=== PATIENT | male | born 1960 | race African-American/Black ===

== ENCOUNTER 2020-09-03 13:05 | Inpatient (IN) | payer MEDICAID ==
[~2020-09-03] VITALS: Ht 172.7 cm; Wt 79.0 kg
[2020-09-03] MEDS ORDERED: PANTOPRAZOLE SODIUM 40 MG/VIAL IV STA (13:29)
[2020-09-03] MEDS ORDERED: FAMOTIDINE 20MG/2ML VIAL IV STA (13:29)
[2020-09-03] MEDS ORDERED: MAGNESIUM/ALUMINUM HYDROXIDE/SIMETHICONE 30ML UDC PO STA (13:29)
[2020-09-03] MEDS ORDERED: SODIUM CHLORIDE 0.9% 1,000 ML IV ONE (13:30)
[2020-09-03] MEDS ORDERED: VISCOUS LIDOCAINE 2% 15 ML UDC PO ONE (13:30)
[2020-09-03 14:26] LABS: BASOPHILS % 0.1 % (0.0-2.0); EOSINOPHILS % 2.7 % (0.0-5.0); HEMATOCRIT. 46.2 % (42.0-52.0); HEMOGLOBIN. 15.8 g/dL (14.0-18.0); MEAN CORPUSCULAR HEMOGLOBIN 31.3 pg (28.0-32.0); MEAN CORPUSCULAR VOLUME 91.2 fL (80.0-94.0); MEAN PLATELET VOLUME 7.1 fl (7.4-10.4); MONOCYTES % 4.2 % (2.0-8.0); PLATELET 257 x1000/uL (130-400); RED BLOOD CELL COUNT 5.06 mill/uL (4.7-6.1); RED CELL DISTRIBUTION WIDTH 14.4 % (11.6-14.6)
[2020-09-03 14:31] LABS: CHLORIDE 110 mEq/L (98-107)
[2020-09-03 14:37] LABS: ETHANOL BLOOD 125 mg/dL
[2020-09-03 15:20] LABS: CLARITY URINE CLEAR (CLEAR); COLOR URINE YELLOW (YELLOW); KETONES URINE NEGATIVE (NEGATIVE); LEUKOCYTE ESTERASE URINE NEGATIVE (NEGATIVE); NITRITE URINE NEGATIVE (NEGATIVE); OCCULT BLOOD URINE NEGATIVE (NEGATIVE); PH URINE 5.5 (4.5-8.0); PROTEIN URINE NEGATIVE (NEGATIVE); SPECIFIC GRAVITY URINE 1.013 (1.005-1.030); UROBILINOGEN URINE 0.2 E.U./dL (0.2-1.0)
[2020-09-03] MEDS ORDERED: IOHEXOL-300 100 ML BOTTLE ONE (19:32)
[2020-09-04] VITALS: BP 115/67
[2020-09-04 04:00] VITALS: BP 133/76
[2020-09-04] MEDS ORDERED: ONDANSETRON HCL 4MG/2ML INJ IV PRN (07:00)
[2020-09-04 08:00] VITALS: BP 120/69
[2020-09-04] MEDS: DEXT 5%/0.45% NACL KCL 10MEQ/L 1,000 ML IV SCH ×3 (09:24→23:43)
[2020-09-04] MEDS: PANTOPRAZOLE SODIUM 40 MG/VIAL IV SCH ×2 (09:25→21:56)
[2020-09-04 10:04] LABS: BASOPHILS % 0.2 % (0.0-2.0); EOSINOPHILS % 2.8 % (0.0-5.0); HEMATOCRIT. 40.3 % (42.0-52.0); LYMPHOCYTES % 29.9 % (20.0-50.0); MEAN CORPUSCULAR HEMOGLOBIN 31.6 pg (28.0-32.0); MEAN CORPUSCULAR VOLUME 90.8 fL (80.0-94.0); MEAN PLATELET VOLUME 7.3 fl (7.4-10.4); MONOCYTES % 6.4 % (2.0-8.0); NEUTROPHILS % 60.7 % (40.0-76.0); PLATELET 229 x1000/uL (130-400); RED BLOOD CELL COUNT 4.43 mill/uL (4.7-6.1); RED CELL DISTRIBUTION WIDTH 14.7 % (11.6-14.6)
[2020-09-04 10:09] LABS: CHLORIDE 109 mEq/L (98-107)
[2020-09-04 12:00] VITALS: BP 133/82
[2020-09-04] MEDS: METOCLOPRAMIDE HCL 10MG/2ML VIAL IV SCH ×3 (13:33→23:43)
[2020-09-04] MEDS ORDERED: FOLIC ACID 1 MG, THIAMINE HCL 100 MG, MVI, ADULT NO.1 10 ML in DEXTROSE 5% WATER 1,000 ML IV SCH (14:00)
[2020-09-04] MEDS: CHLORDIAZEPOXIDE 25MG CAPSULE PO SCH ×2 (14:00→21:56)
[2020-09-04 16:00] VITALS: BP 109/65
[2020-09-04 20:00] VITALS: BP 115/67
[2020-09-05] VITALS: BP 101/55
[2020-09-05 00:07] LABS: *AMPHETAMINES SCREEN URINE NEGATIVE (NEGATIVE); *BARBITURATES SCREEN URINE NEGATIVE (NEGATIVE); *BENZODIAZEPINES SCREEN URINE NEGATIVE (NEGATIVE); *COCAINE SCREEN URINE NEGATIVE (NEGATIVE)
[2020-09-05 00:08] LABS: CANNABINOID URINE SCREEN NEGATIVE (NEGATIVE); METHADONE URINE SCREEN NEGATIVE (NEGATIVE); OPIATES URINE SCREEN NEGATIVE (NEGATIVE); PHENCYCLIDINE URINE SCREEN NEGATIVE (NEGATIVE)
[2020-09-05 04:00] VITALS: BP 106/56
[2020-09-05] MEDS: METOCLOPRAMIDE HCL 10MG/2ML VIAL IV SCH ×2 (06:02→11:12)
[2020-09-05] MEDS: CHLORDIAZEPOXIDE 25MG CAPSULE PO SCH (06:02)
[2020-09-05 06:14] LABS: CHLORIDE 105 mEq/L (98-107)
[2020-09-05 06:20] LABS: PHOSPHORUS 2.5 mg/dL (2.5-4.9)
[2020-09-05 06:38] LABS: BASOPHILS % 0.1 % (0.0-2.0); EOSINOPHILS % 3.2 % (0.0-5.0); HEMOGLOBIN. 12.7 g/dL (14.0-18.0); LYMPHOCYTES % 32.7 % (20.0-50.0); MEAN CORPUSCULAR HEMOGLOBIN 31.4 pg (28.0-32.0); MEAN CORPUSCULAR VOLUME 91.4 fL (80.0-94.0); MEAN PLATELET VOLUME 7.5 fl (7.4-10.4); MONOCYTES % 6.5 % (2.0-8.0); NEUTROPHILS % 57.5 % (40.0-76.0); PLATELET 195 x1000/uL (130-400); RED BLOOD CELL COUNT 4.04 mill/uL (4.7-6.1); RED CELL DISTRIBUTION WIDTH 14.2 % (11.6-14.6)
[2020-09-05 07:35] LABS: HEPATITIS A AB IGM NEGATIVE (NEGATIVE)
[2020-09-05 08:00] VITALS: BP 100/65
[2020-09-05] MEDS ORDERED: POTASSIUM CHLORIDE 20MEQ TABLET SR PO NR (09:45)
[2020-09-05] MEDS: PANTOPRAZOLE SODIUM 40 MG/VIAL IV SCH (11:12)
[2020-09-05] MEDS: DEXT 5%/0.45% NACL KCL 10MEQ/L 1,000 ML IV SCH (11:12)
[2020-09-05 12:00] VITALS: BP 114/64
[2020-09-05 12:47] LABS: HEPATITIS B SURFACE ANTIGEN NEGATIVE
[2020-09-05] MEDS ORDERED: OMEP20TA2 MT (12:58)
[2020-09-05] MEDS ORDERED: THIA100T88 MT (12:58)
[2020-09-05 14:48] VITALS: BP 114/64
== END 2020-09-05 15:29 | disposition home or self-care (01) | DRG 242 ==
LOC: ER 13:19 → 6EST 17:31 → ENRESERV 22:46
PROVIDERS: ADMIT Internal Medicine; ATTEND Internal Medicine
DX: K22.6 Gastro-esophageal laceration-hemorrhage syndrome (principal); E87.8 Other disorders of electrolyte and fluid balance, not elsewhere classified; K29.21 Alcoholic gastritis with bleeding; I11.9 Hypertensive heart disease without heart failure; K70.30 Alcoholic cirrhosis of liver without ascites; I25.10 Atherosclerotic heart disease of native coronary artery without angina pectoris; F10.129 Alcohol abuse with intoxication, unspecified; F10.139 Alcohol abuse with withdrawal, unspecified; K57.90 Diverticulosis of intestine, part unspecified, without perforation or abscess without bleeding; Y90.6 Blood alcohol level of 120-199 mg/100 ml; Z87.11 Personal history of peptic ulcer disease; Z71.41 Alcohol abuse counseling and surveillance of alcoholic
CPT/HCPCS: 36415; 74177; 76700; 80048; 80053; 80305; 80320; 81003; 82105; 83735; 84100; 84484; 85025; 86705; 86709; 86803; 86850; 86900; 87340; 93005; 99285; C9113; J2765; J3411; J3490; J7030; J7070; Q9967; G0480

== ENCOUNTER 2022-03-10 08:38 | Emergency (ER) | payer MEDICAID ==
[~2022-03-10] VITALS: Ht 167.6 cm; Wt 71.0 kg
[~2022-03-10 08:38] MED LIST: OMEP20TA23 MT; THIA100T88 MT
[2022-03-10] MEDS ORDERED: ACETAMINOPHEN 325MG TABLET PO ONE (09:00)
[2022-03-10] MEDS ORDERED: LIDOCAINE 5% PATCH TOP ONE (09:00)
[2022-03-10] MEDS ORDERED: HYDROCODONE/ACETAMINOPHEN 5/325MG TABLET PO ONE (09:00)
[2022-03-10] MEDS ORDERED: ACET-2708 MT (10:38)
[2022-03-10] MEDS ORDERED: LIDO700A15 TP (10:40)
[2022-03-10 13:00] VITALS: BP 124/81
== END 2022-03-10 13:14 | disposition home or self-care (01) ==
LOC: ER 08:38
DX: R07.89 Other chest pain (principal); M25.562 Pain in left knee; V19.49XA Pedal cycle driver injured in collision with other motor vehicles in traffic accident, initial encounter; Y93.89 Activity, other specified; Y92.89 Other specified places as the place of occurrence of the external cause; Y99.8 Other external cause status; I10 Essential (primary) hypertension
CPT/HCPCS: 36415; 71101; 73564; 84484; 93005; 99285